=== PATIENT | male | born 1990 | race American Indian/Alaskan Native ===

== ENCOUNTER 2017-01-06 17:06 | Emergency (ER) | payer BC ==
[2017-01-06 17:07] VITALS: BMI 21.2
[2017-01-06 17:19] VITALS: BP 142/90; PULSE 100; RESP 18; TEMP 98.7; O2SAT 98
--- NOTE | 2017-01-06 17:37 | ED PDOC ---
Arrival/HPI - General Chief Complaint: Medical Clearance Time Seen by Provider: 01/06/17 17:11 Historian: Patient - History of Present Illness Narrative History of Present Illness (Text): 01/06/17 17:36 A 27 year old male sent into the emergency department by PMD. Patient reports he was seen in the emergency department 5 days ago (tuesday) for neck pain. He was discharged home with pain medication and muscle relaxants and instructed to follow up with his PMD. Patient followed up with PMD who gave the patient steroids and was told to get a MRI. The patient had a MRI today, which he took to his PMD office. PMD reviewed MRI and told patient to come to go to the emergency department at [facility]. Patient reports persistent burning sensation from his neck radiating down the right arm to the fingers. He notes a numbness sensation to the right fingertips. He reports that he has had these symptoms for the last week (started tuesday and visited ED first on tuesday). He denies any urinary symptoms, focal weakness to the lower or upper extremities , or any other complaints at this time. He denies any new symptoms. Time/Duration: 1 week Symptom Onset: Sudden Symptom Course: Unchanged Quality: Burning Activities at Onset: Rest Context: Home Past Medical History - Provider Review Nursing Documentation Reviewed: Yes - Infectious Disease Hx of Infectious Diseases: None - Tetanus Immunization Tetanus Immunization: Unknown - Past Medical History Past Medical History: No Previous - Cardiac Hx Cardiac Disorders: No - Pulmonary Hx Respiratory Disorders: No - Neurological Hx Neurological Disorder: No - HEENT Hx HEENT Disorder: No - Renal Hx Renal Disorder: No - Endocrine/Metabolic Hx Endocrine Disorders: No - Hematological/Oncological Hx Blood Disorders: No - Integumentary Hx Dermatological Disorder: No - Musculoskeletal/Rheumatological Hx Musculoskeletal Disorders: No Hx Falls: No - Gastrointestinal Hx Gastrointestinal Disorders: No - Genitourinary/Gynecological Hx Genitourinary Disorders: No - Psychiatric Hx Psychophysiologic Disorder: No Hx Substance Use: No - Past Surgical History Past Surgical History: No Previous - Suicidal Assessment Feels Threatened In Home Enviroment: No Family/Social History - Physician Review Nursing Documentation Reviewed: Yes Family/Social History: Unknown Family HX Smoking Status: Never Smoked Hx Alcohol Use: Yes (social drinks only) Hx Substance Use: No Hx Substance Use Treatment: No Allergies/Home Meds Allergies/Adverse Reactions: Allergies No Known Allergies Allergy (Verified 01/06/17 17:19) Home Medications: Home Meds Medication Instructions Recorded Confirmed Cyclobenzaprine [Flexeril] 10 mg PO BID 01/06/17 01/06/17 Methylprednisolone [Medrol Dose 4 mg PO DAILY 01/06/17 01/06/17 Pack (21 tabs)] Review of Systems - Review of Systems Constitutional: absent: Fevers Eyes: absent: Vision Changes ENT: absent: Rhinorrhea Respiratory: absent: SOB, Cough, Sputum Cardiovascular: absent: Chest Pain, Palpitations Gastrointestinal: absent: Abdominal Pain Genitourinary Male: absent: Dysuria, Frequency, Hematuria, Urinary Output Changes Musculoskeletal: Neck Pain. absent: Back Pain Skin: absent: Rash Neurological: absent: Headache, Dizziness, Focal Weakness Endocrine: absent: Polyuria Psychiatric: absent: Depression Physical Exam Vital Signs Reviewed: Yes Vital Signs Temp Pulse Resp BP Pulse Ox 01/06/17 17:23 98.7 F 100 H 18 142/90 98 01/06/17 17:07 98.7 F 100 H 18 142/90 98 Temperature: Afebrile Blood Pressure: Normal Pulse: Regular Respiratory Rate: Normal Appearance: Positive for: Well-Appearing, Non-Toxic, Comfortable Pain Distress: None Mental Status: Positive for: Alert and Oriented X 3 - Systems Exam Head: Present: Atraumatic, Normocephalic Pupils: Present: PERRL Extroacular Muscles: Present: EOMI Conjunctiva: Present: Normal Mouth: Present: Moist Mucous Membranes Neck: Present: Normal Range of Motion Respiratory/Chest: Present: Clear to Auscultation, Good Air Exchange. No: Respiratory Distress, Accessory Muscle Use Cardiovascular: Present: Regular Rate and Rhythm, Normal S1, S2. No: Murmurs Abdomen: Present: Normal Bowel Sounds. No: Tenderness, Distention, Peritoneal Signs Back: Present: Normal Inspection Upper Extremity: Present: Normal Inspection, Normal ROM, NORMAL PULSES, Neurovascularly Intact, Capillary Refill < 2s, Norm 2-Pt Discrimination (normal) , Other (able to discriminate sharp and light touch to distal fingers). No: Cyanosis, Edema, Tenderness, Swelling, Erythema, Temperature Abnormalties, Deformity Lower Extremity: Present: Normal Inspection. No: Edema Neurological: Present: GCS=15, CN II-XII Intact, Speech Normal, Motor Func Grossly Intact, Normal Sensory Function, Gait Normal Skin: Present: Warm, Dry, Normal Color. No: Rashes Psychiatric: Present: Alert, Oriented x 3, Normal Insight, Normal Concentration Medical Decision Making ED Course and Treatment: 01/06/17 17:36 Impression: A 27 year old male sent in by PMD for neck pain. Patient had a MRI today. He reports burning sensation down his R arm starting in his neck and numbness to distal fingers. Normal physical exam. He brought CD with him but has no report and no new neuro symptoms. I called patient's PMD Dr. Florez at [phone]. I spoke to his assistants who reported that patient came to their office today and he sent patient directly to ED. They are unable to describe reason why and informed me that they would txt the doctor to call me back. I never got a return call. I called the number for [facility] ([phone]) that I found on patient's CD. They were able to fax me a couple of the report. The report said "there is straightening of the cervical lordotic curvature indicates cervical muscular spasm. Bulging disc and mild bony foraminal stenosis on the left at C3-4. Bulging disc with mild canal stenosis at C4-C5. Left foraminal herniation with severe left-sided foraminal stenosis at C5-6. Hypertrophic bony changes produce severe bilateral foraminal stenosis at C6-7." I have no other information why PMD sent patient to the ED. He has no new symptoms. I believe he needs ortho and neurology follow-up but no emergent surgery currently. I spoke to patient again and he confirms he has no new symptoms and was told to go to [facility] [place]. I called [facility] [place] ED and spoke Dr. Nelson, one of the attendings. He spoke to the charge nurse and other ED MD and they deny Dr. Yeboah calling ahead and do not know anything about the patient. I told patient that based on this, I would recommend he go home and call his PMD in the morning for more detailed instructions/referral. I gave patient referral to neurology and neurosurgery in case patient is unable to get referral from PMD. I also referred to [facility] to follow-up with him in the morning. He has told to return immediately with any new symptoms. He reports that he understands and is requesting motrin rx for pain which I gave patient. 01/13/17 08:17 Placed call to patient to follow-up and there was no answer. - Scribe Statement The provider has reviewed the documentation as recorded by the Scribe Chantale Bejarano Provider Scribe Attestation: All medical record entries made by the Scribe were at my direction and personally dictated by me. I have reviewed the chart and agree that the record accurately reflects my personal performance of the history, physical exam, medical decision making, and the department course for this patient. I have also personally directed, reviewed, and agree with the discharge instructions and disposition. Disposition/Present on Arrival - Present on Arrival Any Indicators Present on Arrival: No History of DVT/PE: No History of Uncontrolled Diabetes: No Urinary Catheter: No History of Decub. Ulcer: No History Surgical Site Infection Following: None - Disposition Have Diagnosis and Disposition been Completed?: Yes Diagnosis: Cervical disc herniation Disposition: HOME/ ROUTINE Disposition Time: 18:34 Patient Plan: Discharge Condition: GOOD Discharge Instructions (ExitCare): Cervical Disc Herniation (ED) Print Language: MALIAN Additional Instructions: Call your primary doctor immediately if the morning for further instructions/ referral. Return to ED immediately if you have any new symptoms. Prescriptions: Ibuprofen [Motrin Tab] 800 mg PO Q8 #30 tab Referrals: John Florez MD [Primary Care Provider] - Follow up with primary Kishan Mccullough MD [Staff Provider] - Follow up with primary Russ Montez MD [Staff Provider] - Follow up with primary [facility] [Outside] - Follow up with primary Forms: WORK NOTE
== END 2017-01-06 19:04 | disposition home or self-care (01) ==
LOC: ED 17:06
DX: M50.20 Other cervical disc displacement, unspecified cervical region (principal)